=== PATIENT | female | born 1990 | race Caucasian/White ===

== ENCOUNTER 2017-11-06 19:52 | Emergency (ER) | payer OTHER ==
[2017-11-06 20:18] VITALS: BP 125/87
--- NOTE | 2017-11-06 20:56 | UC ---
Respiratory Complaint HPI - HPI Summary HPI Summary: The patient is a 27-year-old female that has had a febrile illness 9 days. Each day she has had a temperature of at least 101 sometimes greater than 102 associated with shaking chills. She has had a mild cough. She has had mild sore throat. He denies any chest pain or shortness of breath. She does state she feels like she has low energy and tires quickly. She was seen 3 days ago at another facility and had a strep test which was negative and a Monospot which was negative. She denies any UTI symptoms. Initially she had moderate myalgias. However now she denies any muscle or joint aches. She has had fleeting hives primarily on her lower extremities. She has not had much of an appetite. She denies any nausea or diarrhea or vomiting. - History of Current Complaint Chief Complaint: UCGeneralIllness Stated Complaint: FEVER Time Seen by Provider: 11/06/17 20:39 Hx Obtained From: Patient Hx Last Menstrual Period: 10/14/17 Onset/Duration: Gradual Onset, Lasting Days - 9 Timing: Constant Severity Initially: Moderate Severity Currently: Moderate Pain Intensity: 5 - declines analgesic or pain med Pain Scale Used: 0-10 Numeric Character: Cough: Nonproductive Aggravating Factors: Nothing Alleviating Factors: Nothing Associated Signs And Symptoms: Positive: Fever, Chills - Allergies/Home Medications Allergies/Adverse Reactions: Allergies Allergy/AdvReac Type Severity Reaction Status Date / Time No Known Allergies Allergy Verified 11/06/17 20:19 Home Medications: Home Medications Ethinyl Estradiol/Drospirenone [Aspen 28 3-0.03 mg] 1 tab PO DAILY WITH MEAL [History Confirmed 11/06/17] Levothyroxine TAB* [Synthroid TAB*] 25 mcg PO 0800 11/06/17 [History Confirmed 11/06/17] Rosuvastatin (NF) [Crestor (NF)] 40 mg PO BEDTIME 11/06/17 [History Confirmed ] Spironolactone (NF) [Spironolactone 50 MG (NF)] 100 mg PO DAILY WITH MEAL [History Confirmed 11/06/17] PMH/Surg Hx/FS Hx/Imm Hx Previously Healthy: Yes - Surgical History Surgical History: None Surgery Procedure, Year, and Place: denies - Family History Known Family History: Positive: Hypertension, Other - dyslipedmia - Social History Alcohol Use: Occasionally Substance Use Type: None Smoking Status (MU): Never Smoked Tobacco Review of Systems Constitutional: Fever, Chills, Fatigue Skin: Negative Eyes: Negative ENT: Sore Throat - resolved Respiratory: Cough - mild Cardiovascular: Negative Gastrointestinal: Negative Genitourinary: Negative Motor: Negative Neurovascular: Negative Musculoskeletal: Myalgia - mild Neurological: Negative Psychological: Negative - resolved All Other Systems Reviewed And Are Negative: Yes Physical Exam Triage Information Reviewed: Yes Appearance: Well-Appearing, No Pain Distress, Well-Nourished Vital Signs: Initial Vital Signs Temp 102.4 F 11/06/17 20:12 Pulse 125 11/06/17 20:12 Resp 18 11/06/17 20:12 BP 125/87 11/06/17 20:12 Pulse Ox 99 11/06/17 20:12 Vital Signs Reviewed: Yes Eyes: Positive: Conjunctiva Clear ENT: Positive: Hearing grossly normal, Pharynx normal, TMs normal - unable to vis right TM due to cerumen, Uvula midline. Negative: Nasal congestion, Nasal drainage, Tonsillar swelling, Tonsillar exudate, Trismus, Muffled voice, Hoarse voice, Dental tenderness, Sinus tenderness Neck: Positive: Supple, Nontender, Enlarged Nodes @ - ant and post cervical Respiratory: Positive: Lungs clear, Normal breath sounds, No respiratory distress, No accessory muscle use Cardiovascular: Positive: RRR, No Murmur, Tachycardia Abdomen Description: Positive: Nontender, No Organomegaly. Negative: CVA Tenderness (R), CVA Tenderness (L), Distended, Guarding Musculoskeletal: Positive: ROM Intact, No Edema Neurological: Positive: Alert Psychological Exam: Normal Skin Exam: Other - hives UC Diagnostic Evaluation - Laboratory O2 Sat by Pulse Oximetry: 99 - normal/not hypoxic Diagnostic Studies Comment: [facility] tr leuks - Radiology Xray Interpretation: No Acute Changes Radiology Interpretation Completed By: ED Physician Respiratory Course/Dx - Differential Dx/Diagnosis Provider Diagnoses: febrile illness. suspect viral syndrome/?mono Discharge - Sign-Out/Discharge Documenting (check all that apply): Patient Departure All imaging exams completed and their final reports reviewed: No - Discharge Plan Condition: Stable Disposition: HOME Patient Education Materials: Viral Syndrome (ED) Referrals: Agus NOE,Berry Ward [Medical Doctor] - If Needed Additional Instructions: rest fluids tylenol or advil if needed the official XR reading is pending a urine culture is pending a test for mono and lyme disease is pending a blood count is pending If we are unable to determine the cause of your symptoms I suggest you see Dr. Goldsmith Stay home from work until fever free x 24 hours TO ER FOR NEW OR WORSENING SYMPTOMS - Billing Disposition and Condition Condition: STABLE Disposition: Home
--- NOTE | 2017-11-07 07:48 | RAD ---
HISTORY: fever/cough COMPARISONS: None VIEWS: 4: Frontal dual-energy and lateral views of the chest. FINDINGS: CARDIOMEDIASTINAL SILHOUETTE: The cardiomediastinal silhouette is normal. MAGDALENA: The magdalena are normal. PLEURA: The costophrenic angles are sharp. No pleural abnormalities are noted. LUNG PARENCHYMA: The lungs are clear. ABDOMEN: The upper abdomen is clear. There is no subphrenic gas. BONES AND SOFT TISSUES: No bone or soft tissue abnormalities are noted. OTHER: None. IMPRESSION: NO ACTIVE CARDIOPULMONARY DISEASE. R0
--- NOTE | 2017-11-07 08:35 | UC ---
- Progress Note Progress Note: FInal chest xray report: no acute disease Discharge - Sign-Out/Discharge Documenting (check all that apply): Post-Discharge Follow Up All imaging exams completed and their final reports reviewed: Yes - Discharge Plan Condition: Stable Disposition: HOME Patient Education Materials: Viral Syndrome (ED) Referrals: Agus NOE,Berry Ward [Medical Doctor] - If Needed Additional Instructions: rest fluids tylenol or advil if needed the official XR reading is pending a urine culture is pending a test for mono and lyme disease is pending a blood count is pending If we are unable to determine the cause of your symptoms I suggest you see Dr. Goldsmith Stay home from work until fever free x 24 hours TO ER FOR NEW OR WORSENING SYMPTOMS - Billing Disposition and Condition Condition: STABLE Disposition: Home
[2017-11-07 14:40] LABS: Hematocrit 40 % (35-47); Hemoglobin 14.1 g/dl (12.0-16.0); Mean Corpuscular HGB Conc 35 g/dl (31-36); Mean Corpuscular Hemoglobin 32 pg (27-31); Mean Corpuscular Volume 91 fL (80-97); Mean Platelet Volume 9.6 um3 (7.4-10.4); Platelet Count 200 10^3/ul (150-450); Red Blood Count 4.37 10^6/ul (4.00-5.40); Red Cell Distribution Width 13 % (10.5-15); White Blood Count 6.6 10^3/ul (3.5-10.8)
[2017-11-07 14:41] LABS: ABS Basophils 0.1 10^3/ul (0-0.2); ABS Eosinophils 0 10^3/ul (0-0.6); ABS Lymphocytes 2.7 10^3/ul (1.0-4.8); ABS Monocytes 0.8 10^3/ul (0-0.8)
[2017-11-07 14:57] LABS: ABS Basophils 0 10^3/ul (0-0.2); ABS Neutrophils 3.2 10^3/ul (1.5-7.7); Monocytes % 12 % (0-7)
--- NOTE | 2017-11-08 09:07 | UC ---
- Progress Note Progress Note: Please call patient to inform monospot test was positive Discharge - Sign-Out/Discharge Documenting (check all that apply): Patient Departure All imaging exams completed and their final reports reviewed: Yes - Discharge Plan Condition: Stable Disposition: HOME Patient Education Materials: Viral Syndrome (ED) Referrals: Agus NOE,Berry Ward [Medical Doctor] - If Needed Additional Instructions: rest fluids tylenol or advil if needed the official XR reading is pending a urine culture is pending a test for mono and lyme disease is pending a blood count is pending If we are unable to determine the cause of your symptoms I suggest you see Dr. Goldsmith Stay home from work until fever free x 24 hours TO ER FOR NEW OR WORSENING SYMPTOMS - Billing Disposition and Condition Condition: STABLE Disposition: Home
== END 2017-11-06 21:45 | disposition home or self-care (01) ==
LOC: UCEAST 19:52
DX: R50.9 Fever, unspecified (principal)
CPT/HCPCS: 36415; 71046; 81003; 85025; 85060; 86308; 86617; 86618; 87086; 99201; G0463